=== PATIENT | female | born 1970 | race Caucasian/White ===

== ENCOUNTER → 2018-02-07 | Outpatient (CLI) | payer BC ==
[~2018-02-07] MED LIST: IOPAMIDOL 370 MG/ML 200 ML INFUS..BTL INJ ONE; SODIUM CHLORIDE 0.9% 50ML 50 ML ONE
[2018-02-07 17:45] LABS: BLOOD UREA NITROGEN 15 mg/dL (7-26); BUN/CREATININE RATIO 19 (6-25); CREATININE, SERUM 0.79 mg/dL (0.57-1.11); EST GLOMERULAR FILTRATION RATE > 60 ML/MIN (60-)
--- NOTE | 2018-02-07 18:43 | Diagnostic Imaging Report ---
EXAMINATION: CT of the chest with contrast, PE protocol. TECHNIQUE: Spiral CT images of the chest were performed from the lung apices through the level of the adrenal glands after the IV administration of 100 cc of Isovue 370. Thin section reconstructions were obtained with special concentration on the pulmonary arteries. Coronal ascites and reformatted images were also performed. COMPARISON: <none> CLINICAL HISTORY:Shortness of breath, tiredness, recent onset of hormonal replacement DISCUSSION: Lungs: No filling defects are identified in the main, right or left pulmonary arteries to their segmental and subsegmental levels, to suggest pulmonary embolism. No pulmonary nodules, masses or consolidation. Linear opacities in the lingula and anterolateral left lower lobe (series 3, images 70 and 78), likely reflect subsegmental atelectasis or scarring. Airways are clear, without endobronchial lesions. Pleura: <There is no evidence of pleural effusion or pneumothorax.> Heart and mediastinum: There is unremarkable. Heart size is normal. No pericardial effusion. Aorta is nonaneurysmal. Main pulmonary artery is normal in caliber, measuring 2.4 cm. Lymph nodes: No mediastinal, hilar or axillary adenopathy. Abdomen: Visualized portions of the upper abdomen show no abnormality in the spleen, pancreas, bilateral kidneys, bowel, gallbladder, biliary tree and adrenal glands. Diffuse hepatic steatosis. Bones and soft tissues: No aggressive lytic lesions. Mild degenerative disc changes in the thoracic spine. Bilateral breast implants are noted. IMPRESSION: 1. No CT evidence of pulmonary embolism 2. Subsegmental atelectasis versus scarring in the lingula and anterolateral left lower lobe. The lungs are otherwise clear. 3. Diffuse hepatic steatosis. 4. Findings discussed with February 07, 2018 at 1840 hours Signed by: Dr. Eldon Anaya M.D. on 02/07/2018 6:40 PM
== END ==
LOC: CT 16:52
PROVIDERS: ATTEND Internal Medicine
DX: R06.02 Shortness of breath (principal)
CPT/HCPCS: 36415; 71260; 82565; 84520